=== PATIENT | male | born 2000 | race Caucasian/White ===

== ENCOUNTER 2025-01-09 13:03 | Emergency (ER) | payer OTHER ==
[~2025-01-09] VITALS: Ht 167.6 cm; Wt 90.9 kg
[2025-01-09 13:13] VITALS: BP 136/78; PULSE 100; RESP 16; TEMP 98.1; O2SAT 96
[2025-01-09] MEDS ORDERED: IBUP-1492 PO (14:41)
== END 2025-01-09 14:59 | disposition home or self-care (01) ==
LOC: EMS 13:05
DX: M25.511 Pain in right shoulder (principal)
CPT/HCPCS: 99283